=== PATIENT | male | born 1955 | race Two or more races ===

== ENCOUNTER 2024-04-13 05:20 | Day surgery (SDC) | payer OTHER ==
[~2024-04-13 05:20] MED LIST: GLIPIZIDE XL5 MG PO; IRBESARTAN-HCT1 EACH PO; NORVASC2.5 MG PO
[2024-04-13] MEDS ORDERED: POVIDONE-IODINE 118 ML BOTT TOP SCH (08:30)
[2024-04-13] MEDS ORDERED: METRONIDAZOLE/SODIUM CHLORIDE 500 MG/100 ML PIGGYBACK IV SCH (08:30)
[2024-04-13] MEDS ORDERED: CEFTRIAXONE SODIUM 2,000 MG VIAL IV SCH (08:30)
[2024-04-13] MEDS ORDERED: LIDOCAINE HCL 1%/EPINEPHRINE 20ML VIAL IJ SCH (08:45)
[2024-04-13] MEDS ORDERED: BUPIVACAINE HCL 30 ML VIAL IJ SCH (08:45)
[2024-04-13] MEDS ORDERED: HEMOSTATIC MATRIX 1 KIT KIT TOP SCH (08:45)
[2024-04-13] MEDS ORDERED: DIBUCAINE 30 GM TUBE RECTAL SCH (08:45)
== END 2024-04-13 14:00 | disposition home or self-care (01) ==
LOC: CIR.AMB 05:20
PROVIDERS: ATTEND Colon & Rectal Surgery
DX: K60.3 Anal fistula (principal); K64.1 Second degree hemorrhoids; K60.5 Anorectal fistula; D12.8 Benign neoplasm of rectum